=== PATIENT | male | born 1990 | race Native Hawaiian/Other Pacific Islander ===

== ENCOUNTER 2016-04-29 12:49 | Emergency (ER) | payer OTHER ==
[~2016-04-29] VITALS: Ht 172.7 cm; Wt 133.4 kg
[2016-04-29 12:55] VITALS: BP 140/75; TEMP 97.8
== END 2016-04-29 14:10 | disposition home or self-care (01) ==
LOC: ED 12:49
DX: S39.012A Strain of muscle, fascia and tendon of lower back, initial encounter (principal); X50.1XXA Overexertion from prolonged static or awkward postures, initial encounter
CPT/HCPCS: 99282